=== PATIENT | female | born 1965 | race African-American/Black ===

== ENCOUNTER 2017-05-12 09:06 | Emergency (ER) | payer MEDICAID, OTHER ==
[~2017-05-12] VITALS: Ht 172.7 cm; Wt 100.0 kg
[~2017-05-12 09:06] MED LIST: ACET120E PO; AMOX125S8 PO; HYDR25TA; OMEP20CA10
[2017-05-12 09:39] VITALS: BP 169/99
== END 2017-05-12 11:14 | disposition home or self-care (01) ==
LOC: ER 10:18
DX: T47.1X6A Underdosing of other antacids and anti-gastric-secretion drugs, initial encounter (principal); I10 Essential (primary) hypertension; L29.9 Pruritus, unspecified; Z91.130 Patient's unintentional underdosing of medication regimen due to age-related debility; Y92.89 Other specified places as the place of occurrence of the external cause
CPT/HCPCS: 99283

== ENCOUNTER 2017-08-10 11:06 | Emergency (ER) | payer MEDICAID, OTHER ==
[~2017-08-10] VITALS: Ht 165.1 cm; Wt 80.0 kg
[2017-08-10 11:21] VITALS: BP 173/90
== END 2017-08-10 14:40 | disposition left against medical advice (07) ==
LOC: ER 12:03
DX: R13.10 Dysphagia, unspecified (principal); K21.9 Gastro-esophageal reflux disease without esophagitis; I10 Essential (primary) hypertension; E03.9 Hypothyroidism, unspecified
CPT/HCPCS: 70360; 99284